=== PATIENT | male | born 1975 | race Caucasian/White ===

== ENCOUNTER 2017-10-02 12:29 | Emergency (ER) | payer OTHER, MEDICAID ==
[~2017-10-02] VITALS: Ht 180.3 cm; Wt 136.1 kg
[~2017-10-02 12:29] MED LIST: AMOXICILLIN875 MG PO; ANAPROX DS550 MG PO; CELEXA20 MG; DEPAKOTE ER500 MG; FLEXERIL PO; HYDROCODON-ACE1 EAC7 PO; IBUPROFEN 200200 M1 PO; NOHOMEMEDICATIONS; NORCO 5-325 TA1 EACH PO; PREDNISONE50 MG PO; PROAIR HFA8.5 GM INH; TRAMADOL 50 MG50 MG PO; TRAZODONE HCL50 MG; VICOPROFEN 2001 EACH PO; VISTARIL50 MG; ZOFRAN ODT4 MG SUBLING
[2017-10-02] MEDS ORDERED: HYDROCODONE-AP1 EAC6 PO ×2 (12:54→13:04)
[2017-10-02] MEDS ORDERED: AMOXICILLIN 50500 MG PO (12:54)
[2017-10-02] MEDS ORDERED: CLEOCIN HCL150 MG PO (13:04)
[2017-10-02] MEDS ORDERED: NAPROSYN500 MG PO (13:04)
[2017-10-02 13:40] VITALS: BP 178/92
== END 2017-10-02 13:49 | disposition home or self-care (01) ==
LOC: M.ERS 12:29
DX: K02.9 Dental caries, unspecified (principal); J45.909 Unspecified asthma, uncomplicated; F31.9 Bipolar disorder, unspecified; M17.9 Osteoarthritis of knee, unspecified; F17.220 Nicotine dependence, chewing tobacco, uncomplicated; Z90.49 Acquired absence of other specified parts of digestive tract

== ENCOUNTER 2018-02-09 05:14 | Emergency (ER) | payer OTHER, MEDICAID ==
[~2018-02-09] VITALS: Ht 180.3 cm; Wt 131.5 kg
[~2018-02-09 05:14] MED LIST changes: +AMOXICILLIN 50500 MG PO; +CLEOCIN HCL150 MG PO; +HYDROCODONE-AP1 EAC6 PO; +NAPROSYN500 MG PO
[2018-02-09] MEDS ORDERED: PREDNISONE50 MG PO (05:55)
[2018-02-09] MEDS ORDERED: FLONASE 0.05%50 MCG NASAL (05:55)
[2018-02-09] MEDS ORDERED: PROAIR HFA8.5 GM INH (05:55)
[2018-02-09 06:30] VITALS: BP 119/74
--- NOTE | 2018-02-10 13:35 | NUR ---
RECEIVED CALL FROM ER AND SARITA THAT PT'S NEBULIZER SCRIPT WAS REQUIRING A PRIOR AUTH. PT HAS HOME STATE. CALL TO MEDICAID AND THEN TO HOME STATE, PER [facility]/HOME STATE, NO PA REQUIRED. JUST NEEDED TO GO THRU A DME CO. CALL TO [facility]. THEY CAN PROVIDE. ATTEMPTED TO CALL PT, HAD TO LEAVE MESSAGE. FAXED FACE SHEET, SCRIPT AND ER REPORT TO [facility]. SHE WILL TRY TO CONTACT PT ALSO TO DELIVER
== END 2018-02-09 06:29 | disposition home or self-care (01) ==
LOC: M.ERS 05:14
DX: J45.909 Unspecified asthma, uncomplicated (principal); F31.9 Bipolar disorder, unspecified; M13.862 Other specified arthritis, left knee; M13.861 Other specified arthritis, right knee; Z90.49 Acquired absence of other specified parts of digestive tract; F17.200 Nicotine dependence, unspecified, uncomplicated

== ENCOUNTER 2019-04-22 17:59 | Emergency (ER) | payer OTHER ==
[~2019-04-22] VITALS: Ht 177.8 cm; Wt 138.8 kg
[~2019-04-22 17:59] MED LIST changes: +FLONASE 0.05%50 MCG NASAL
[2019-04-22 18:23] LABS: URINE BILIRUBIN NEGATIVE (Negative); URINE BLOOD 3+ (Negative); URINE CLARITY CLEAR; URINE COLOR YELLOW; URINE GLUCOSE-RANDOM NEGATIVE (Negative); URINE KETONES NEGATIVE (Negative); URINE LEUKOCYTES-REFLEX NEGATIVE (Negative); URINE NITRITE-REFLEX NEGATIVE (Negative); URINE PROTEIN 1+ (Negative); URINE SPECIFIC GRAVITY 1.025 (1.005-1.030)
[2019-04-22 18:29] LABS: ABSOLUTE BASOPHILS 0.1 thou/uL (0.0-0.2); ABSOLUTE LYMPHOCYTES 1.1 thou/uL (0.8-5.3); ABSOLUTE MONOCYTES 0.5 thou/uL (0.0-1.2); ABSOLUTE NEUTROPHILS 8.2 thou/uL (1.6-8.1); BASOPHILS 0.6 %; EOSINOPHILS 0.5 %; HEMATOCRIT 39.3 % (42.0-52.0); HEMOGLOBIN 13.9 gm/dL (14.0-18.0); LYMPHOCYTES 10.7 %; MCH 30.1 pg (26.0-34.0); MCHC 35.4 g/dL (28.0-37.0); MONOCYTES 5.6 %; MPV 6.7 fl. (7.2-11.1); NUCLEATED RBCS 0 /100WBC; PLATELET COUNT* 249 thou/uL (150-400); POLYS 82.6 %; RBC 4.62 mil/uL (4.50-6.00); RDW-CV 12.7 % (10.5-14.5); WBC 9.9 thou/uL (4.0-11.0)
[2019-04-22 18:29] LABS: SQUAMOUS NONE SEEN /LPF (0-3)
[2019-04-22 18:30] LABS: CRYSTALS None Seen /LPF (None Seen); HYALINE CASTS 0-3 Few /LPF (None Seen); MUCUS >6 Heavy strn/LPF (None Seen); URINE RBC 0-2 Rare /HPF (0-2); URINE WBC-REFLEX 0-5 Rare /HPF (0-5)
[2019-04-22 18:36] LABS: CALCIUM 8.4 mg/dL (8.5-10.1); CREATININE 1.1 mg/dL (0.6-1.3); POTASSIUM 3.5 mmol/L (3.5-5.1)
[2019-04-22 18:41] LABS: ALBUMIN 2.9 g/dL (3.4-5.0); TOTAL BILIRUBIN 1.1 mg/dL (<0.1-1.0); TOTAL PROTEIN 7.3 g/dL (6.4-8.2)
[2019-04-22 19:01] LABS: AMP/METHAMP Negative (Negative); BARBITURATES Negative (Negative); BENZODIAZEPINES Negative (Negative); COCAINE Negative (Negative); METHADONE Negative (Negative); OPIATES Negative (Negative); PCP Negative (Negative); THC Negative (Negative)
[2019-04-22 19:07] LABS: TROPONIN-I LEVEL <0.06 ng/mL (<0.06)
[2019-04-22] MEDS ORDERED: DOXYCYCLINE 10100 MG PO (20:21)
[2019-04-22] MEDS ORDERED: ACETAMINOPHEN-1 EAC1 PO (20:22)
[2019-04-22 21:19] VITALS: BP 117/64
--- NOTE | 2019-04-24 14:51 | EKG ---
[place] [address] ELECTROCARDIOGRAM REPORT Name: BETZAIDA GRANADO [id number] Admission: 04/22/19 Attend Phys: Discharge: 04/22/19 Date of : 73 Report #: [id number] THIS REPORT FOR: //name// [facility] ED Test Date: 2019-04-22 Test Time: 19:24:31 Pat Name: BETZAIDA GRANADO Department: Room: Gender: M [employer] Supervisor: : 1975 Requested By: Cresencio Henao Order Number: [id number] MD: Sharan Tamez Measurements Intervals [place] Rate: 103 P: 71 [place]: 147 QRS: 76 QRSD: 89 T: 34 QT: 302 QTc: 396 Interpretive Statements Sinus tachycardia Consider right ventricular hypertrophy Compared to ECG 09/11/2013 09:00:07 Sinus rate has increased Ventricular premature complex(es) no longer present Electronically Signed On 04-24-2019 14:50:42 CDT by Sharan Tamez [email or web address] <ELECTRONICALLY SIGNED> By: Sharan Tamez MD, [facility] 04/24/19 1450 23 23 Sharan Tamez MD, FACC /EPI
== END 2019-04-22 21:18 | disposition home or self-care (01) ==
LOC: M.ERS 17:59
PROVIDERS: Physician Assistant
DX: N41.9 Inflammatory disease of prostate, unspecified (principal); J45.909 Unspecified asthma, uncomplicated; F31.9 Bipolar disorder, unspecified; M13.869 Other specified arthritis, unspecified knee; F17.220 Nicotine dependence, chewing tobacco, uncomplicated; Z98.890 Other specified postprocedural states; Z90.49 Acquired absence of other specified parts of digestive tract; Z79.899 Other long term (current) drug therapy

== ENCOUNTER 2019-04-25 17:17 | Emergency (ER) | payer OTHER ==
[~2019-04-25] VITALS: Ht 180.3 cm; Wt 138.8 kg
[~2019-04-25 17:17] MED LIST changes: +ACETAMINOPHEN-1 EAC1 PO; +DOXYCYCLINE 10100 MG PO
[2019-04-25 18:44] LABS: ABSOLUTE EOSINOPHILS 0.1 thou/uL (0.0-0.7); ABSOLUTE MONOCYTES 0.6 thou/uL (0.0-1.2); ABSOLUTE NEUTROPHILS 7.3 thou/uL (1.6-8.1); BASOPHILS 0.5 %; EOSINOPHILS 0.9 %; HEMATOCRIT 39.7 % (42.0-52.0); LYMPHOCYTES 10.6 %; MCH 29.6 pg (26.0-34.0); MCHC 35.2 g/dL (28.0-37.0); MCV 83.9 fL (80.0-100.0); MONOCYTES 6.4 %; MPV 6.7 fl. (7.2-11.1); NUCLEATED RBCS 0 /100WBC; PLATELET COUNT* 330 thou/uL (150-400); POLYS 81.6 %; RBC 4.73 mil/uL (4.50-6.00)
[2019-04-25 18:54] LABS: CALCIUM 8.7 mg/dL (8.5-10.1); CREATININE 0.9 mg/dL (0.6-1.3); POTASSIUM 3.5 mmol/L (3.5-5.1)
[2019-04-25 18:58] LABS: ALBUMIN 2.8 g/dL (3.4-5.0); TOTAL BILIRUBIN 0.7 mg/dL (<0.1-1.0); TOTAL PROTEIN 7.7 g/dL (6.4-8.2)
[2019-04-25 19:42] VITALS: BP 124/69
--- NOTE | 2019-04-26 16:07 | EKG ---
[place] [address] ELECTROCARDIOGRAM REPORT Name: BETZAIDA GRANADO Room: [facility]#: [id number] Admission: 04/25/19 Attend Phys: Discharge: 04/25/19 Date of : 73 Report #: [id number] THIS REPORT FOR: //name// [facility] ED Test Date: 2019-04-25 Test Time: 17:55:03 Pat Name: BETZAIDA GRANADO Department: Room: Gender: [employer] Trader: : 1975 Requested By: Rach More Order Number: [id number] MD: Grant Colmenares Measurements Intervals [place] Rate: 86 P: 69 [place]: 146 QRS: 76 QRSD: 96 T: 44 QT: 355 QTc: 425 Interpretive Statements Sinus rhythm Compared to ECG 04/22/2019 19:24:31 Sinus tachycardia no longer present Electronically Signed On 04-26-2019 16:07:01 CDT by Grant Colmenares [email or web address] <ELECTRONICALLY SIGNED> By: Grant Colmenares MD, [facility] 04/26/19 1607 1755 1755 Grant Colmenares MD, FACC /EPI
== END 2019-04-25 19:42 | disposition home or self-care (01) ==
LOC: M.ERS 17:17
PROVIDERS: Nurse Practitioner Family
DX: B34.9 Viral infection, unspecified (principal); R53.1 Weakness; F17.220 Nicotine dependence, chewing tobacco, uncomplicated

== ENCOUNTER 2020-03-26 14:27 | Emergency (ER) | payer OTHER ==
[~2020-03-26] VITALS: Ht 182.9 cm; Wt 136.5 kg
[2020-03-26 15:06] LABS: ABSOLUTE BASOPHILS 0.1 thou/uL (0.0-0.2); ABSOLUTE LYMPHOCYTES 1.4 thou/uL (0.8-5.3); ABSOLUTE MONOCYTES 0.8 thou/uL (0.0-1.2); BASOPHILS 0.8 %; EOSINOPHILS 0.3 %; HEMATOCRIT 43.7 % (42.0-52.0); HEMOGLOBIN 15.3 gm/dL (14.0-18.0); LYMPHOCYTES 9.1 %; MCH 29.7 pg (26.0-34.0); MCHC 35.1 g/dL (28.0-37.0); MCV 84.7 fL (80.0-100.0); MPV 6.7 fl. (7.2-11.1); NUCLEATED RBCS 0 /100WBC; PLATELET COUNT* 411 thou/uL (150-400); POLYS 84.8 %; RBC 5.16 mil/uL (4.50-6.00); RDW-CV 13.2 % (10.5-14.5); WBC 15.4 thou/uL (4.0-11.0)
[2020-03-26 15:11] LABS: CALCIUM 8.7 mg/dL (8.5-10.1); CREATININE 1.3 mg/dL (0.6-1.3); POTASSIUM 3.4 mmol/L (3.5-5.1)
[2020-03-26 15:22] LABS: ALBUMIN 2.9 g/dL (3.4-5.0); TOTAL BILIRUBIN 0.7 mg/dL (<0.1-1.0); TOTAL PROTEIN 8.4 g/dL (6.4-8.2)
[2020-03-26] MEDS ORDERED: VENTOLIN HFA 1818 GM INH (15:47)
[2020-03-26] MEDS ORDERED: LEVAQUIN 500 M500 M2 PO (15:47)
[2020-03-26 17:31] VITALS: BP 129/80
--- NOTE | 2020-03-27 14:31 | EKG ---
[place] [address] ELECTROCARDIOGRAM REPORT Name: BETZAIDA GRANADO Room: [facility]#: [id number] Admission: 03/26/20 Attend Phys: Discharge: 03/26/20 Date of : 73 Date of Service: 03/26/20 1441 Report #: [id number] THIS REPORT FOR: //name// [facility] ED Test Date: 2020-03-26 Test Time: 14:41:11 Pat Name: BETZAIDA GRANADO Department: Room: Gender: [employer] Mel[employer] Helper: : 1975 Requested By: Renay Albrecht Order Number: [id number] MD: Grant Colmenares Measurements Intervals [place] Rate: 101 P: 69 [place]: 140 QRS: 60 QRSD: 96 T: 33 QT: 321 QTc: 416 Interpretive Statements Sinus tachycardia Baseline wander in lead(s) II,III,aVF,V1,V4 Compared to ECG 04/25/2019 17:55:03 Sinus rhythm no longer present Electronically Signed On 03-27-2020 14:31:10 CDT by Grant Colmenares [email or web address] <ELECTRONICALLY SIGNED> By: Grant Colmenares MD, FACC 03/27/20 1431 1441 1441 Grant Colmenares MD, [facility] /EPI
== END 2020-03-26 17:32 | disposition home or self-care (01) ==
LOC: M.ERS 14:27
PROVIDERS: Nurse Practitioner Family
DX: J18.9 Pneumonia, unspecified organism (principal); M13.869 Other specified arthritis, unspecified knee; J45.909 Unspecified asthma, uncomplicated; Z90.89 Acquired absence of other organs; Z90.49 Acquired absence of other specified parts of digestive tract